=== PATIENT | female | born 1980 | race Caucasian/White ===

== ENCOUNTER 2017-08-22 10:22 | Outpatient (CLI) | payer OTHER | END 2017-08-22 10:23 | disposition home or self-care (01) | LOC: CTENTCT 10:22 | PROVIDERS: ATTEND Otolaryngology Plastic Surgery within the Head & Neck | DX: J32.9 Chronic sinusitis, unspecified (principal) | CPT/HCPCS: 70486 ==

== ENCOUNTER 2018-05-24 13:42 | Outpatient (CLI) | payer BC ==
--- NOTE | 2018-05-24 16:09 | MRI ---
MRI LUMBAR SPINE WITHOUT CONTRAST: Date: 05-24-18 Comparison: None History: Sacroiliitis. Chronic back pain since 2005. Technique: Multiplanar, multisequence MR imaging of the lumbar spine provided without contrast. FINDINGS: Sagittal STIR imaging demonstrates no focal area of osseous marrow edema. Lumbar vertebral body heigh t and alignment appears within normal limits. Assuming five lumbar type vertebral bodies, the conus medullaris terminates at the L1 level. T12-L1: No significant central canal or neural foraminal stenosis. Intervertebral disc height and sig nal intensity within normal limits. L1-2: Intervertebral disc height and signal intensity within normal limits with no significant centra l canal or neural foraminal stenosis. L2-3: Intervertebral disc height and signal intensity within normal limits with no significant centra l canal or neural foraminal stenosis. L3-4: Intervertebral disc height and signal intensity within normal limits with no significant centra l canal or neural foraminal stenosis. L4-5: Intervertebral disc height and signal intensity within normal limits with no significant centra l canal or neural foraminal stenosis. L5-S1: Intervertebral disc height and signal intensity within normal limits with no significant centr al canal or neural foraminal stenosis. Review of the retroperitoneal structures appears grossly unremarkable. IMPRESSION: Unremarkable lumbar spine MRI. POS: PAULO
== END 2018-05-24 13:43 | disposition home or self-care (01) ==
LOC: BICMRI 13:42
PROVIDERS: ATTEND Internal Medicine Rheumatology
DX: M46.1 Sacroiliitis, not elsewhere classified (principal)
CPT/HCPCS: 72148

== ENCOUNTER 2018-07-09 12:46 | Outpatient (CLI) | payer BC ==
--- NOTE | 2018-07-09 17:25 | RAD ---
2 VIEWS LEFT HIP: Date: 07/09/18 COMPARISON: None. HISTORY: Ankylosing spondylitis, pain. FINDINGS: No acute fracture or evidence of dislocation seen. IMPRESSION: No acute findings. POS: JESSYH
--- NOTE | 2018-07-09 17:25 | RAD ---
PELVIS AP STANDARD: Date: 07/09/18 HISTORY: Ankylosing spondylitis at multiple sites. COMPARISON: None. FINDINGS: No fracture. No malalignment. The SI joints are unremarkable. Pubic symphysis unremarkable. Obturator rings intact. IMPRESSION: Unremarkable exam. POS: JESSY
--- NOTE | 2018-07-09 17:29 | RAD ---
RIGHT HIP 2 VIEWS: HISTORY: Ankylosing spondylitis at multiple sites. COMPARISON: None. FINDINGS: No fracture. No malalignment. The right obturator ring is intact. No significant hip joint narrowi ng. The right SI joint is normal. IMPRESSION: Unremarkable exam. POS: PAULO
== END 2018-07-09 12:47 | disposition home or self-care (01) ==
LOC: BICRAD 12:46
PROVIDERS: ATTEND Internal Medicine Rheumatology
DX: M45.0 Ankylosing spondylitis of multiple sites in spine (principal)
CPT/HCPCS: 72170

== ENCOUNTER 2018-12-12 08:28 | Day surgery (SDC) | payer BC ==
[2018-12-11 11:10] VITALS: BMI 35.4
[2018-12-12] MEDS ORDERED: Oxymetazoline HCl 0.05% ( 15 ML ) ONE ×2 (09:25→10:17)
[2018-12-12] MEDS ORDERED: Lidocaine 1% w/Epinephrine 1:100K 20 ML VIAL ONE (10:17)
[2018-12-12] MEDS ORDERED: Morphine 10 MG/ML VIAL ONE (10:46)
[2018-12-12] MEDS ORDERED: methylPREDNISolone Acetate 40 mg/ml Vial ONE (11:23)
[2018-12-12] MEDS ORDERED: Morphine 2 MG/ML SYRINGE ONE ×4 (12:05→12:43)
[2018-12-12] MEDS ORDERED: PROPOFOL 200 MG/20 ML VIAL ONE (13:55)
[2018-12-12] MEDS ORDERED: Lidocaine 1% PF 5 ML VIAL ONE (13:55)
[2018-12-12] MEDS ORDERED: Ondansetron PF 4 MG/2 ML Vial ONE (13:55)
[2018-12-12] MEDS ORDERED: Succinylcholine Chloride 20 MG/ML 10 ml SYRINGE FS ONE (13:55)
[2018-12-12] MEDS ORDERED: Dexamethasone 20 MG/5 ML VIAL ONE (13:55)
[2018-12-12] MEDS ORDERED: PHENYLEPHRINE-NS 100 MCG/ML 10 ML SYRINGE ONE (13:55)
--- NOTE | 2018-12-13 10:57 | OP ---
DATE OF PROCEDURE: 12/12/2018 PREOPERATIVE DIAGNOSES: 1. Chronic rhinosinusitis. 2. Bilateral inferior turbinate hypertrophy. 3. Bilateral middle turbinate lisa bullosa. 4. Chronic adenotonsillitis. 5. Adenotonsillar hypertrophy. POSTOPERATIVE DIAGNOSES: 1. Chronic rhinosinusitis. 2. Bilateral inferior turbinate hypertrophy. 3. Bilateral middle turbinate lisa bullosa. 4. Chronic adenotonsillitis. 5. Adenotonsillar hypertrophy. PROCEDURES PERFORMED: 1. Bilateral endoscopic sinus surgery, total ethmoidectomies. 2. Bilateral endoscopic sinus surgery, maxillary antrostomies. 3. Bilateral endoscopic sinus surgery, frontal sinusotomies. 4. Bilateral inferior turbinate submucosal resection. 5. Tonsillectomy and adenoidectomy. ESTIMATED BLOOD LOSS: 20 mL. COMPLICATIONS: None. ANESTHESIA: GETA. PROCEDURE IN DETAIL: After consent was obtained, the patient was identified, brought to the operating room, and placed on the operating table in the supine position. General endotracheal anesthesia and intravenous access were obtained and we proceeded with positioning the patient for oropharyngeal surgery. Oropharyngeal exposure was obtained with a Jade-Guero mouth gag after a head drape was placed and secured with a towel clip. The Jade-Guero mouth gag was then suspended from the Portillo tray and palatal elevation was achieved with a red rubber catheter. The right tonsil was addressed first. We used a curved Allis to grasp the tonsil and retract it medially as an anterior pillar incision was made. The retrotonsillar fascial plane was then established and blunt dissection was performed with the suction cautery. Blood vessels were anticipated, identified, and cauterized as they were encountered. Ultimately, dissection was carried to the posterior tonsillar pillar mucosa which was incised hemostatically, as well as the base of tongue connection. The tonsil was then passed off as a specimen and bleeding points within the tonsillar bed were cauterized under direct visualization. We subsequently turned our attention to the contralateral side, where using a similar technique, a near identical procedure was performed. Again, the tonsil was grasped and retracted medially with a curved Allis. The retrotonsillar fascial plane was established and while the anterior pillar was retracted medially. The hemostatic blunt dissection of the tonsil with a suction cautery was performed with blood vessels anticipated, identified, and cauterized as they were encountered. Again, dissection continued to the base of tongue and posterior tonsillar pillar mucosa which was incised in a hemostatic fashion. The tonsillar beds were then carefully inspected and bleeding points were identified and cauterized with a suction cautery. After this portion of the procedure, hemostasis was completely obtained. Under direct mirror visualization, we visualized the adenoid pad. Under direct mirror visualization, we removed the bulk of the adenoid tissue with the adenoid curette. We then packed the nasopharynx for an appropriate period of time with [id number] tonsillar sponges. After a period of observation, we removed the pack. Under indirect mirror visualization, we obtained hemostasis and vaporization of residual adenoid tissue with electrocautery. The patient's oral cavity was copiously irrigated with iced saline and subsequently suctioned. After completion of the procedure, the nasal cavity and oropharynx were irrigated and suctioned as were the gastric contents. The patient was then awakened and transferred to the recovery room where the patient remained in stable condition prior to discharge to Day Stay. Following this, the patient was prepped and draped for standard nasal procedure and was placed in the beach chair position. Following this, 1% lidocaine with 1:100,000 epinephrine was injected into the inferior turbinates, middle turbinates, and lateral nasal wall bilaterally. Following this, the 0-degree endoscope was advanced in the middle meatus. The middle turbinates were gently medialized using a [place] elevator. The uncinate process was identified bilaterally and was anteriorly fractured using a ball-ended probe. Following this, the uncinate process was then removed using the straight microdebrider and the up-biting Blakesley forceps. Following this, the natural maxillary sinus ostia was identified and was gently widened using the curved microdebrider and the straight Blakesley forceps. Following this, the ethmoidal bulla was identified bilaterally and was punctured on its medial and inferior aspect with the 0-degree microdebrider. The ethmoidal bulla was then removed using the microdebrider and up-biting Blakesley forceps bilaterally. Following this, the grand lamella was identified and was punctured into the posterior ethmoidal cells using the microdebrider. Working from posterior to anterior, the ethmoidal cells were opened using the microdebrider and the up-biting Blakesley forceps. Following this, 45-degree endoscope along with a 40-degree microdebrider blade were used to further open the anterior ethmoidal cells as well as open and expose the frontal sinus recess and frontal sinus ostia bilaterally. Following this, the nasal cavity was irrigated. The middle turbinate lisa bullosas were then vertically incised using a sickle knife. The lateral portions of the large lisa bullosa was then resected using the 0-degree microdebrider and the straight Blakesley forceps bilaterally. Following this, the nasal cavity was irrigated. Mirapex was placed within the middle meatus. The patient tolerated the procedure well. Job ID: [id number]
== END 2018-12-12 13:50 | disposition home or self-care (01) ==
LOC: SDC 08:28
PROVIDERS: ATTEND Otolaryngology Plastic Surgery within the Head & Neck
PROC: 09TL8ZZ Resection of Nasal Turbinate, Via Natural or Artificial Opening Endoscopic (ICD-10-PCS; principal; 2018-12-12)
PROC: 0CTQXZZ Resection of Adenoids, External Approach (ICD-10-PCS; principal; 2018-12-12)
PROC: 0CTPXZZ Resection of Tonsils, External Approach (ICD-10-PCS; principal; 2018-12-12)
PROC: 099R8ZZ Drainage of Left Maxillary Sinus, Via Natural or Artificial Opening Endoscopic (ICD-10-PCS; principal; 2018-12-12)
PROC: 099Q8ZZ Drainage of Right Maxillary Sinus, Via Natural or Artificial Opening Endoscopic (ICD-10-PCS; principal; 2018-12-12)
DX: J35.03 Chronic tonsillitis and adenoiditis (principal); J34.3 Hypertrophy of nasal turbinates; J32.0 Chronic maxillary sinusitis; J32.2 Chronic ethmoidal sinusitis
CPT/HCPCS: 85014; 88304; J1030; J1100; J2001; J2270; J2405; J2704

== ENCOUNTER 2019-04-09 14:34 | Outpatient (CLI) | payer BC ==
--- NOTE | 2019-04-09 14:54 | RAD ---
XR Foot Rt 3 View STANDARD History: Pain in right foot Comparison: None. Findings: No acute fracture or malalignment. Low-grade midfoot degenerative disease. Small plantar an d dorsal calcaneal spurs. Impression: No acute osseous abnormality.
== END 2019-04-09 14:35 | disposition home or self-care (01) ==
LOC: BICRAD 14:34
PROVIDERS: ATTEND Internal Medicine Rheumatology
DX: M79.671 Pain in right foot (principal)